=== PATIENT | male | born 1965 | race Caucasian/White ===

== ENCOUNTER 2019-01-11 11:56 | Inpatient (IN) ==
[2019-01-11] MEDS ORDERED: methylPREDNISolone SOD SUC 125 MG/2 ML VIAL IV STA (12:21)
[2019-01-11] MEDS ORDERED: cefTRIAXone 1,000 MG in SODIUM CHLORIDE 0.9% 100 ML IV STA (12:21)
[2019-01-11] MEDS ORDERED: ONDANSETRON 4 MG/2 ML VIAL IV STA (12:21)
[2019-01-11] MEDS ORDERED: ALBUTEROL 2.5 MG/3 ML NEB RESP TX SCH (12:30)
[2019-01-11 12:51] LABS: Basophils # 0.1 10*3/uL (0.0-0.2); Basophils % 0.5 % (0.0-0.8); Eosinophils # 0.1 10*3/uL (0.0-0.87); Eosinophils % 0.6 % (0.00-10.9); Hematocrit 38.3 VOL% (42.0-52.0); Hemoglobin 12.1 GM/DL (14.0-18.0); Immature Granulocytes % 0.6 %; Immature Granulocytes Absolute 0.06 #; Lymphocytes # 1.4 10*3/uL (1.4-4.0); Lymphocytes % 12.8 % (21.2-54.2); Mean Corpuscular HGB Conc 31.6 GM/DL (32-36); Mean Corpuscular Volume 83.3 FL (87-102); Mean Platelet Volume 10.4 FL (9.6-12.0); Monocytes % 10.6 % (1.7-12.7); Neutrophils % 74.9 % (38.7-73.9); Platelet Count 292 T/CUMM (130-400); Red Cell Distribution Width 14.4 % (9.3-17.3); White Blood Count 10.9 T/CUMM (4-12)
[2019-01-11 13:02] LABS: PT Patient Result 10.6 SECS (9.6-12.2); Partial Thromboplastin Time 26.1 SECS (20.8-36.0)
[2019-01-11 13:14] LABS: Alanine Aminotransferase 42 U/L (16-61); Albumin 2.9 G/DL (3.4-5.0); Alkaline Phosphatase 87 U/L (45-117); Aspartate Amino Transferase 13 U/L (0-37); Blood Urea Nitrogen 13 MG/DL (7-18); Calcium 8.6 MG/DL (8.5-10.1); Estimated Glom Filtration Rate 161 ML/MIN; Glucose 132 MG/DL (74-106); Osmolality,Calculated 280.4 MOS/KG (273-304); Total Protein 7.2 G/DL (6.4-8.3); Troponin I 0.028 NG/ML (0.00-0.045)
[2019-01-11 14:30] LABS: Apearance,Urine CLEAR (Clear); Bilirubin,Urine Negative (Negative); Blood, Urine Small mg/dL (Negative); Glucose,Urine (UA) >=500 mg/dL (Negative); Ketones,Urine 20 mg/dL (Negative); Mucus,Urine Occasional /LPF (Occasional); Nitrite,Urine Negative (Negative); Protein,Urine 100 MG/DL; RBC,Urine 2 /HPF (0-4); Squamous Epithelial Cell,Urine Occasional /HPF (0-10); Urine Color Yellow (Yellow); Urine Specific Gravity 1.018 (1.001-1.035); Urine Urobilinogen < 2.0 EU/DL (0.2-1.0); WBC,Urine <1 /HPF (0-6)
[2019-01-11] MEDS ORDERED: ACETAMINOPHEN 325 MG TABLET PO PRN (14:41)
[2019-01-11] MEDS ORDERED: ONDANSETRON 4 MG/2 ML VIAL IV PRN (14:41)
[2019-01-11] MEDS ORDERED: DEXTROSE 50% 25 GM/50 ML VIAL IV PRN (14:41)
[2019-01-11] MEDS ORDERED: LACTULOSE 20 GM/30 ML UDCUP PO PRN (14:41)
[2019-01-11] MEDS ORDERED: GLUCAGON 1 MG VIAL IM PRN (14:41)
[2019-01-11] MEDS ORDERED: ALBUTEROL 2.5 MG/3 ML NEB RESP TX PRN (14:44)
[2019-01-11] MEDS ORDERED: LEVOFLOXACIN INJ 750 MG in PREMIX 1 EACH IV SCH (15:00)
[2019-01-11 15:17] LABS: Risk Ratio 3.65; Thyroid Stimulating Hormone 0.564 uIU/ml (0.358-3.74); VLDL CHOLESTEROL 20.6 MG/DL
[2019-01-11] MEDS: BENZONATATE 100 MG CAPSULE PO SCH ×2 (17:05→20:17)
[2019-01-11] MEDS: glipiZIDE 10 MG TABLET PO SCH (17:05)
[2019-01-11] MEDS: ENOXAPARIN 40 MG/0.4 ML SYRINGE SUBCUT SCH (17:06)
[2019-01-11] MEDS: INSULIN REGULAR 100 UNIT/ML SUBCUT SCH ×2 (18:09→20:17)
[2019-01-11] MEDS: PIPERACILLIN/TAZOBACTAM 3,375 MG in SODIUM CHLORIDE 0.9% 100 ML IV SCH (18:47)
[2019-01-11] MEDS: ALBUTEROL/IPRATROPIUM 3 ML NEB RESP TX SCH (20:03)
[2019-01-11] MEDS: guaiFENesin/DM ER 600-30 MG TABLET PO SCH (20:17)
[2019-01-11] MEDS: PREGABALIN 75 MG CAPSULE PO SCH (20:17)
[2019-01-12] MEDS: ALBUTEROL/IPRATROPIUM 3 ML NEB RESP TX SCH ×4 (00:48→19:57)
[2019-01-12] MEDS: PIPERACILLIN/TAZOBACTAM 3,375 MG in SODIUM CHLORIDE 0.9% 100 ML IV SCH (01:13)
[2019-01-12 06:13] LABS: Basophils % 0.1 % (0.0-0.8); Hematocrit 39.1 VOL% (42.0-52.0); Immature Granulocytes % 0.4 %; Immature Granulocytes Absolute 0.03 #; Lymphocytes # 0.7 10*3/uL (1.4-4.0); Lymphocytes % 8.5 % (21.2-54.2); Mean Corpuscular HGB Conc 30.7 GM/DL (32-36); Mean Corpuscular Volume 83.4 FL (87-102); Mean Platelet Volume 11.4 FL (9.6-12.0); Monocytes % 8.7 % (1.7-12.7); Neutrophils % 82.3 % (38.7-73.9); Platelet Count 212 T/CUMM (130-400); Red Blood Count 4.69 MC/CUMM (3.8-5.5); Red Cell Distribution Width 14.6 % (9.3-17.3); White Blood Count 8.1 T/CUMM (4-12)
[2019-01-12 06:30] LABS: Albumin 2.9 G/DL (3.4-5.0); Bilirubin,Total 0.8 MG/DL (0.2-1.0); Calcium 8.5 MG/DL (8.5-10.1); Osmolality,Calculated 285.7 MOS/KG (273-304); Total Protein 7.3 G/DL (6.4-8.3)
[2019-01-12] MEDS: BENZONATATE 100 MG CAPSULE PO SCH ×3 (08:48→22:30)
[2019-01-12] MEDS: glipiZIDE 10 MG TABLET PO SCH ×2 (08:48→16:26)
[2019-01-12] MEDS: guaiFENesin/DM ER 600-30 MG TABLET PO SCH ×2 (08:48→22:31)
[2019-01-12] MEDS: INSULIN REGULAR 100 UNIT/ML SUBCUT SCH ×4 (08:48→22:30)
[2019-01-12] MEDS: PANTOPRAZOLE 40 MG TABLET PO SCH (08:48)
[2019-01-12] MEDS: PREGABALIN 75 MG CAPSULE PO SCH ×2 (08:48→22:31)
[2019-01-12] MEDS ORDERED: DAPAGLIFLOZIN 10 MG PO SCH (09:00)
[2019-01-12] MEDS: LEVOFLOXACIN INJ 750 MG in PREMIX 1 EACH IV SCH (11:14)
[2019-01-12] MEDS: ENOXAPARIN 40 MG/0.4 ML SYRINGE SUBCUT SCH (16:24)
[2019-01-13] MEDS: ALBUTEROL/IPRATROPIUM 3 ML NEB RESP TX SCH ×4 (02:10→19:35)
[2019-01-13] MEDS ORDERED: ALBUTEROL 2.5 MG/3 ML NEB RESP TX PRN ×3 (04:47→06:06)
[2019-01-13 05:07] LABS: Basophils % 0.4 % (0.0-0.8); Eosinophils # 0.1 10*3/uL (0.0-0.87); Eosinophils % 0.8 % (0.00-10.9); Hemoglobin 12.4 GM/DL (14.0-18.0); Immature Granulocytes % 0.3 %; Immature Granulocytes Absolute 0.03 #; Lymphocytes # 1.8 10*3/uL (1.4-4.0); Lymphocytes % 18.1 % (21.2-54.2); Mean Corpuscular Volume 84.2 FL (87-102); Mean Platelet Volume 11.9 FL (9.6-12.0); Monocytes % 9.1 % (1.7-12.7); Neutrophils % 71.3 % (38.7-73.9); Platelet Count 215 T/CUMM (130-400); Red Blood Count 4.75 MC/CUMM (3.8-5.5); Red Cell Distribution Width 14.8 % (9.3-17.3); White Blood Count 9.9 T/CUMM (4-12)
[2019-01-13] MEDS ORDERED: FUROSEMIDE 20 MG/2 ML VIAL IV ONE (06:39)
[2019-01-13] MEDS: glipiZIDE 10 MG TABLET PO SCH ×2 (09:52→17:02)
[2019-01-13] MEDS: INSULIN REGULAR 100 UNIT/ML SUBCUT SCH ×4 (09:53→22:38)
[2019-01-13] MEDS: PREGABALIN 75 MG CAPSULE PO SCH ×2 (09:53→22:37)
[2019-01-13] MEDS: BENZONATATE 100 MG CAPSULE PO SCH ×3 (09:53→22:37)
[2019-01-13] MEDS: guaiFENesin/DM ER 600-30 MG TABLET PO SCH ×2 (09:53→22:37)
[2019-01-13] MEDS: PANTOPRAZOLE 40 MG TABLET PO SCH (09:53)
[2019-01-13] MEDS: LEVOFLOXACIN INJ 750 MG in PREMIX 1 EACH IV SCH (09:59)
[2019-01-13] MEDS ORDERED: DULAGLUTIDE SUBCUT SCH (14:47)
[2019-01-13] MEDS: cefTRIAXone 2,000 MG in SYRINGE 1 EACH IV SCH (16:59)
[2019-01-13] MEDS: ENOXAPARIN 40 MG/0.4 ML SYRINGE SUBCUT SCH (17:00)
[2019-01-13] MEDS: AZITHROMYCIN INJ 500 MG in SODIUM CHLORIDE 0.9% 250 ML IV SCH (17:05)
[2019-01-13] MEDS ORDERED: guaiFENesin/CODEINE 5 ML LIQUID PO PRN (17:30)
[2019-01-14] MEDS: ALBUTEROL/IPRATROPIUM 3 ML NEB RESP TX SCH ×3 (00:18→14:20)
[2019-01-14] MEDS: INSULIN REGULAR 100 UNIT/ML SUBCUT SCH ×2 (09:19→12:27)
[2019-01-14] MEDS: guaiFENesin/DM ER 600-30 MG TABLET PO SCH (09:20)
[2019-01-14] MEDS: PANTOPRAZOLE 40 MG TABLET PO SCH (09:20)
[2019-01-14] MEDS: BENZONATATE 100 MG CAPSULE PO SCH ×2 (09:20→15:56)
[2019-01-14] MEDS: PREGABALIN 75 MG CAPSULE PO SCH (09:20)
[2019-01-14] MEDS: glipiZIDE 10 MG TABLET PO SCH ×2 (09:20→15:56)
[2019-01-14] MEDS: cefTRIAXone 2,000 MG in SYRINGE 1 EACH IV SCH (15:31)
[2019-01-14 15:32] VITALS: BP 133/71
[2019-01-14] MEDS: ENOXAPARIN 40 MG/0.4 ML SYRINGE SUBCUT SCH (15:56)
[2019-01-14] MEDS: AZITHROMYCIN INJ 500 MG in SODIUM CHLORIDE 0.9% 250 ML IV SCH (15:57)
[2019-01-18 15:36] LABS: QuantiFERON-Tb Gold Pl Negative (Negative); TB2 Ag Minus Result 0.01 IU/mL
== END 2019-01-14 17:33 | disposition home or self-care (01) | DRG 194 ==
LOC: N.ED 11:56 → N.EDINP 14:41 → N.5E 16:19
PROVIDERS: ADMIT Internal Medicine; ATTEND Internal Medicine